=== PATIENT | female | born 1985 | race Asian ===

== ENCOUNTER 2022-10-20 14:28 | Emergency (ER) | payer OTHER ==
[~2022-10-20] VITALS: Ht 152.4 cm; Wt 78.2 kg
[2022-10-20 14:32] VITALS: BP 130/77; PULSE 89; RESP 18; TEMP 98.5
[2022-10-20] MEDS ORDERED: IBUP-1492 PO (18:59)
[2022-10-20] MEDS ORDERED: BACL10TA PO (18:59)
[2022-10-20] MEDS ORDERED: IBUPROFEN 600 MG TABLET PO ONE (19:00)
[2022-10-20] MEDS ORDERED: BACLOFEN 10 MG TABLET PO ONE (19:00)
== END 2022-10-20 19:18 | disposition home or self-care (01) ==
LOC: EMS 14:40
DX: M25.562 Pain in left knee (principal); M25.512 Pain in left shoulder; M54.2 Cervicalgia; V98.8XXA Other specified transport accidents, initial encounter; Y93.89 Activity, other specified; Y92.89 Other specified places as the place of occurrence of the external cause; Y99.8 Other external cause status
CPT/HCPCS: 70450; 71045; 72125; 99284